=== PATIENT | male | born 1965 | race Caucasian/White ===

== ENCOUNTER 2017-01-01 17:53 | Emergency (ER) | payer BC ==
[~2017-01-01] VITALS: Ht 190.5 cm; Wt 105.0 kg
[2017-01-01 17:55] VITALS: BP 143/77; PULSE 96; RESP 20; TEMP 97.7; O2SAT 95
[2017-01-01] MEDS ORDERED: LOMO2.5T PO (18:05)
--- NOTE | 2017-01-01 18:05 | PD ---
HPI . right knee pain Chief Complaint: Pain: Acute or Chronic Time Seen by Provider: 18:05 Travel History International Travel<30 days: No Contact w/Intl Traveler<30days: No Traveled to known affect area: No History of Present Illness HPI 51-year-old male with diabetes, HTN, HLD and also history of ulcerative Colitis here with complaints of right knee pain. Patient was walking along [address] yesterday when he slipped and fell to his right knee. Patient has significant pain on the right knee, rated as 8/10 without any radiation. He reports difficulty ambulating. He is unable to bend his knee completely due to the pain and swelling. He has a history of bilateral arthroscopic knee surgery in the past. he denies any other issues today. He is accompanied by his . PFSH Past Medical History Diabetes: Yes Social History Tobacco Use: No Allergies-Medications (Allergen,Severity, Reaction): Coded Allergies: Ciprofloxacin (Verified Allergy, Unknown, 01/01/17) Reported Meds & Prescriptions Reported Meds & Active Scripts Active Reported Glyburide 5 Mg Tab 10 Mg PO DAILY Take with meals at the same time each day Proair Hfa 8.5 GM Inh (Albuterol Sulfate) 90 Mcg/Act Aer 1 Puff .ROUTE Q4H PRN 108 mcg/actuation Escitalopram (Escitalopram Oxalate) 10 Mg Tab 10 Mg PO DAILY Metformin (Metformin HCl) 1,000 Mg Tab 1,000 Mg PO BIDPC With meals Losartan (Losartan Potassium) 25 Mg Tab 25 Mg PO DAILY Trazodone (Trazodone HCl) 100 Mg Tab 100 Mg PO HS Simvastatin 20 Mg Tab 20 Mg PO DAILY Lomotil (Diphenoxylate-Atropine) 2.5-0.025 Mg Tab 2.5 Tab PO TID PRN Review of Systems General / Constitutional: No: Fever Eyes: No: Visual changes HENT: No: Headaches Cardiovascular: No: Chest Pain or Discomfort Respiratory: No: Shortness of Breath Gastrointestinal: No: Abdominal Pain Genitourinary: No: Dysuria Musculoskeletal: Positive: Pain (right knee pain) Skin: No Rash Neurologic: No: Weakness Psychiatric: No: Depression Endocrine: No: Polydipsia Hematologic/Lymphatic: No: Easy Bruising Physical Exam Narrative GENERAL: AAO x 3, no acute distress, Well-nourished, well-developed patient. SKIN: Warm and dry. No visible rashes or bruising. HEAD: Normocephalic and atraumatic. EYES: No scleral icterus. No injection or drainage. ENT: No nasal drainage noted. Mucous membranes pink. Airway patent. NECK: Supple, trachea midline. No JVD. CARDIOVASCULAR: Regular rate and rhythm without murmurs, gallops, or rubs. RESPIRATORY: Breath sounds equal bilaterally. No accessory muscle use. No rhonchi or rales. GASTROINTESTINAL: Abdomen soft, non-tender, nondistended. EXTREMITIES: No cyanosis. Significant edema of the right knee, patella tenderness, inability to flex/extend without increased pain. BACK: Nontender without obvious deformity. No CVA tenderness. PSYCH: AAO x 3, normal affect. Data Data Last Documented VS Vital Signs Date Time Temp Pulse Resp B/P Pulse Ox O2 Delivery O2 Flow Rate FiO2 01/01/17 17:55 97.7 96 20 143/77 95 Room Air Orders Knee, Complete (4vws) (01/01/17 18:10) Oxycodone-Acetamin 5-325 Mg (Percocet (01/01/17 18:30) MDM Medical Decision Making Medical Screen Exam Complete: Yes Emergency Medical Condition: Yes Medical Record Reviewed: Yes Differential Diagnosis knee effusion, less likely knee fracture, less likely dislocation Narrative Course 51-year-old male with diabetes and also history of ulcerative Colitis here with complaints of right knee pain. Patient was walking along [address] yesterday when he slipped and fell to his right knee. Patient has significant pain on the right knee, rated as 8/10 without any radiation. He reports difficulty ambulating. He is unable to bend his knee completely due to the pain and swelling. He has a history of bilateral arthroscopic knee surgery in the past. he denies any other issues today. He is accompanied by his . Patient seen and examined. He does have significant issues with this right knee. X-ray ordered. X-ray positive for effusion without any fracture or dislocation. Advised that he will need to see an orthopedist for further care. He can continue to take ibuprofen daily. Ramiro wrap and crutches provided. Provided ortho offices information. Patient verbalized understanding of instructions, questions were answered, and thanked me for their care. I advised them if their condition worsens, please return to the nearest emergency room for further care. Diagnosis Primary Impression: Knee effusion, right Referrals: [facility] [place] Patient Instructions: General Instructions, Knee Pain (ED) Additional Instructions: Rest the affected area as much as possible. Ice this area for 15-20 minutes at a time. You can do this every hour or as much as tolerated. Keep this area compressed (ramiro bandage) as tolerated. Elevate this area. Use ibuprofen as needed for pain and inflammation. Med/Other Pt SpecificInfo: No Change to Meds Disposition: 01 DISCHARGE HOME Condition: Stable Sue George Jan 01, 2017 18:05
[2017-01-01] MEDS ORDERED: SIMV20TA PO (18:06)
[2017-01-01] MEDS ORDERED: LOSA25TA PO (18:07)
[2017-01-01] MEDS ORDERED: TRAZ100T4 PO (18:07)
[2017-01-01] MEDS ORDERED: METF1000 PO (18:08)
[2017-01-01] MEDS ORDERED: ALBUAER3 (18:09)
[2017-01-01] MEDS ORDERED: ESCI10TA PO (18:09)
[2017-01-01] MEDS ORDERED: GLYB5TAB3 PO ×2 (18:13→18:14)
[2017-01-01] MEDS ORDERED: oxyCODONE/ACETAMINOPHEN 5 MG/325 MG TAB PO ONE (18:30)
--- NOTE | 2017-01-01 18:53 | RADRPT ---
EXAM DATE/TIME: 01/01/2017 18:44 [facility] COMPARISON: No previous studies available for comparison. INDICATIONS : Right knee pain from a fall. MEDICAL HISTORY : None. SURGICAL HISTORY : None. ENCOUNTER: Initial ACUITY: 1 day PAIN SCORE: 8/10 LOCATION: Right knee FINDINGS: There is a large joint effusion but I don't see a fracture. No subluxation. There is right knee osteoarthritis, as severe the medial compartment and moderate of the lateral and patellofemoral compartments. CONCLUSION: 1. Large joint effusion without fracture. 2. Moderate to severe osteoarthritis. Eron Valerio MD on January 01, 2017 at 18:50 Board Certified Radiologist. This report was verified electronically.
== END 2017-01-01 19:41 | disposition home or self-care (01) ==
LOC: NEPB 17:53
DX: M25.461 Effusion, right knee (principal); E11.9 Type 2 diabetes mellitus without complications; Z79.4 Long term (current) use of insulin; E78.5 Hyperlipidemia, unspecified; W01.0XXA Fall on same level from slipping, tripping and stumbling without subsequent striking against object, initial encounter; Y93.01 Activity, walking, marching and hiking
CPT/HCPCS: 73564; 99283; E0113